=== PATIENT | male | born 1935 | race Caucasian/White ===

== ENCOUNTER 2023-03-25 21:51 | Inpatient (IN) | payer OTHER ==
[~2023-03-25] VITALS: Ht 167.6 cm; Wt 63.9 kg
[2023-03-25] MEDS ORDERED: TAMS.4ER PO (22:16)
[2023-03-25] MEDS ORDERED: AMLO10 PO (22:16)
[2023-03-25] MEDS ORDERED: ZOCOR20 MG PO (22:16)
[2023-03-25] MEDS ORDERED: METO100ER PO (22:17)
[2023-03-25] MEDS ORDERED: ELIQUIS5 M2 PO (22:17)
[2023-03-25] MEDS ORDERED: METF500 PO (22:17)
[2023-03-25] MEDS ORDERED: Aspir 8181 MG PO (22:19)
[2023-03-25] MEDS ORDERED: Lisinopril2.5 MG PO (22:19)
[2023-03-25] MEDS ORDERED: INSULANI SC (22:20)
[2023-03-25 22:36] LABS: BASOPHILS ABSOLUTE AUTO 0.08 K/mm3 (0.00-0.23); BASOPHILS PERCENT AUTO 1 % (0-2); EOSINOPHILS ABSOLUTE AUTO 0.33 K/mm3 (0.00-0.68); EOSINOPHILS PERCENT AUTO 4 % (0-6); Hematocrit 34.7 % (37.0-53.0); Hemoglobin 11.9 g/dL (13.5-17.5); IMMATURE GRAN ABSOLUTE AUTO 0.02 K/mm3 (0.00-0.10); IMMATURE GRAN PERCENT AUTO 0 % (0-1); LYMPHOCYTES ABSOLUTE AUTO 1.27 K/mm3 (0.84-5.20); LYMPHOCYTES PERCENT AUTO 15 % (21-46); MONOCYTES ABSOLUTE AUTO 0.82 K/mm3 (0.16-1.47); MONOCYTES PERCENT AUTO 10 % (4-13); Mean Corpuscular HGB 31.7 pg (26.0-34.0); Mean Corpuscular HGB Conc 34.3 g/dL (31.5-36.5); Mean Corpuscular Volume 93 fL (80-100); Mean Platelet Volume 9.8 fL (9.1-12.4); NEUTROPHILS ABSOLUTE AUTO 6.05 K/mm3 (1.96-9.15); NEUTROPHILS PERCENT AUTO 71 % (41-73); Platelet Count 244 K/mm3 (150-400); RDW Standard Deviation 44.3 fL (35.1-46.3); Red Blood Cell Count 3.75 M/mm3 (4.30-5.90); White Blood Cell Count 8.57 K/mm3 (4.00-11.30)
[2023-03-25 22:55] LABS: Albumin, Blood 3.2 g/dL (3.4-5.0); Albumin/Globulin Ratio 0.8 (0.8-1.8); Bilirubin, Total 0.4 mg/dL (0.1-1.0); Calcium, Blood 9.2 mg/dL (8.5-10.1); Creatinine, Blood 0.85 mg/dL (0.60-1.20); Globulin, Blood 4.2 g/dL (2.2-4.0); Magnesium, Blood 2.2 mg/dL (1.6-2.4); Potassium, Blood 4.1 mmol/L (3.5-5.5); Total Protein, Blood 7.4 g/dL (6.4-8.2)
[2023-03-26 00:15] LABS: International Normalized Ratio 1.07; Prothrombin Time Results 11.2 Sec (9.7-11.5)
[2023-03-26 03:05] LABS: Anti-Xa UFH, PHA Monitoring 0.28 IU/mL
[2023-03-26 03:14] VITALS: BP 136/75
[2023-03-26] MEDS ORDERED: MULTI-VITAMIN1 EAC2 PO (04:40)
[2023-03-26] MEDS ORDERED: MIRALAX17 GM PO (04:40)
[2023-03-26 06:03] LABS: CHOL/HDL RATIO 3.4; Cholesterol 114 mg/dL (50-200); HDL Cholesterol 34 mg/dL (>39); LDL/HDL RATIO 1.7; Low Density Lipoprotein Chol 58 mg/dL (0-110); Triglycerides 109 mg/dL (30-160); Very Low Density Lipoprot Chol 21 mg/dL (6-32)
--- NOTE | 2023-03-26 06:04 | NUR ---
SHIFT SUMMARY PT ADMITTED AT 305- REPORT FROM ED RN PRIOR TO ARRIVAL, PT STOOD AND WALKED FROM [facility], ASSESSMENT DONE, PT UNABLE TO ANSWER QUESTIONS APPROPRIATE- PT SET OFF BED ALARM MULTIPLE TIMES GETTING OUT OF BED, PT USED URINAL WITHOUT PROBLEMS- BED LOW POSITION, CALL LIGHT WITHIN REACH, BED ALARM IN PLACE
[2023-03-26 07:09] VITALS: BP 145/70
--- NOTE | 2023-03-26 16:29 | NUR ---
SHIFT SUMMARY PT AWAKE AT START OF SHIFT, FREQUENTLY OOB, SETTING BED ALARM OFF. PT IS WEAK AND UNSTEADY. UP TO CHAIR SEVERAL TIMES AND BACK TO BED. PT VERY RESTLESS AND AGITATED, CONSTANTLY SETTING OFF ALARMS. SPEECH SLIGHTLY [place], [facility] [place], AND CONFUSED. DR CERNA AND THEN DR BHAGAT IN TO SEE PT. NEW ORDERS PLACED. IVF'S STARTED. SP TX IN TO SEE PT AND LATER FOR COG EVAL. MRI CANCELED, PT UNABLE TO PROVIDE INFORMATION. ECHO DONE IN . PT'S DAUGHTER TO EARLIER TODAY OFF AND ON; TALKING WITH MINE TECHNICIAN AND PALLIATIVE CARE. PT NOW COMFORT CARE. PT RESTING QUIETLY AT THIS TIME. DAUGHTER NOW GONE HOME. BED ALARM ON FOR SAFETY. CALL LT IN REACH.
--- NOTE | 2023-03-26 19:50 | NUR ---
Pt reviewed with nursing and speech, Physican called with great concern of worseing cognative ability and dementia. Assesmnt of pt he looks very frail and uncomfotable. Keeps pulling at rail to reposition. Ventiltion is poor and signs of possible air hunger he connot express. Daughter inthis evening. He slives with her and she cares for him. She recently took [place] and just had a telehealth assessment. she presnts great decline recently. Up at [employer] can't rest and more aggiated. We reviewed his diagnostics, labs, speech eval and history. pt cared for his of many years who had parkinsons. He has been a heavy smoker for many years. And would have a smoke to cope with wifes decline. After her passing he later met a woman he befirended and had some quality of life and new found love. She not to long ago from a sudden event. daughter states took a big toll. after our discussion reviewed that it might be time for hospice and to change his code status. Asked he to review with family she stated there is minimal family and they defer to her. She clearly stated the hospice care supported by the [place] would be best and she feels it aligns with his wishes. Hd nurs Pan michel RN witness conversation. updated care manger and nursing of his subtle air hunger. Order placed will monitor symptoms. Had therputic time with daughter will have chaplian see her and will update visiting vets. She is showing great cargiver stress. hope is she can visit him and be his daughter as she has expressed great love and respect for her father. Will try to provide digity and comfort to this .
--- NOTE | 2023-03-27 05:43 | NUR ---
SHIFT SUMMARY PLACED 14F MARIA AT BEGINNING OF SHIFT PER ORDER FROM DAYSHIFT. PT RESTLESS AND AGITATED TRYING TO PULL OUT MARIA AND NOT REDIRECTABLE. PRN HALDOL GIVEN WITH NO EFFECT. PT STATED YES TO PAIN BUT UNABLE TO STATE WHERE. PRN ROXANOL GIVEN. PT STILL VERY AGITATED AND PULLING MARIA AND YELLING. PRN IV ATIVAN GIVEN WITH POSITIVE EFFECT. PT SLEPT UNTIL AROUND [id number] AND STARTED THRASHING AROUND IN BED AND STARTING TO GET AGITATED AGAIN. PRN IV ATIVAN GIVEN AGAIN WITH POSITIVE EFFECT. PT CURRENTLY SLEEPING.
--- NOTE | 2023-03-27 17:59 | NUR ---
SHIFT SUMMARY: PT IS AN 87 YEAR OLD MALE HERE ON COMFORT CARE. HE HAS BEEN RESTING MOST OF THE DAY IN BED, BUT WOULD TRY TO CLIMB OUT OF BED THROUGHOUT THE DAY. HE IS RE-DIRECTABLE AND IS COOPERATIVE. HE IS ALERT AND ORIENTED TO SELF AND PLACE. HE WILL SIT ON THE SIDE OF THE BED WITH SUPERVISED/ASSISTED WITH MEALS. HE HAS NOT USED HIS CALL LIGHT. HE HAS TOLERATED COMFORT CARE MEDICATIONS WELL WITHOUT SIGNS OF OVER SEDATION OR RESPIRATORY DEPRESSION. PATIENT'S DAUGHTER AND PALLATIVE CARE ON PRESENT IN THE ROOM AT THIS TIME. PLAN OF CARE ONGOING.
--- NOTE | 2023-03-27 19:08 | NUR ---
Multiple calls form patients daughter. She is anioux about plan of care. She is planning on taking him home on hospice. She is trying to work out caregivers. She is happy to see him comfortable. he sat up and took some ensure. he awas able to tolerate going back to bed and letting us settle him. Review with her what medication were helping and what he may need going forward. will continue to support her process. Completed polst on chart.
--- NOTE | 2023-03-28 06:03 | NUR ---
Shift Summary Pt AOx1 and difficult to redirect. Pt becomes anxious and confused and tries to get out of bed to 'get out of here'. He can be redirected back to bed with some effort. I gave him PRN Ativan for anxiety, he slept well t/o most of the night. No signs of air hunger, pt states no pain and there are no signs of pain. Castano in place at patent, although pt frequently removes the stat lock. On comfort care. No aggression or combativeness tonight.
--- NOTE | 2023-03-28 16:43 | NUR ---
SHIFT SUMMARY: PT ORIENTED TO SELF. PT ANXIOUS THIS AM. GAVE 2MG ATIVAN PO WHICH APPEARED TO NOT HELP WITH AGITATION/ANXIETY. ROXANOL GIVEN PER EMAR. PT ABLE TO SLEEP FROM 1300 TO 1600 CALMLY W/O AGITATION OR ATTEMPTS OOB. MARIA IN PLACE DRAINING YELLOW URINE TO GRAVITY. COMFORT CARE MEASURES IN PLACE. COMFORT CARE ASSESSMENTS COMPLETED. BED IN LOWEST POSITION W/ALARM ON. 3 SIDERAILS UP FOR SAFETY. CALL LIGHT IN REACH. WILL CONTINUE TO MONITOR.
--- NOTE | 2023-03-28 17:50 | NUR ---
Spoke to pt's daughter by phone this evening; she states feeling anxiety surrounding taking him home. The plan is for the patient to go to [facility] for [facility] hospice, with a possibility of him returning home if she can get [facility] paid CG's in the home. At this point, there is no CG set up. Allowed pt's daughter to express her concerns, and talk through the situation. She does verbalize understanding that this current situation of the pt being at may be permanent, but is willing to take it one step at a time. Palliative care will remain available to daughter Kathi.
--- NOTE | 2023-03-29 05:54 | NUR ---
Shift Summary Pt oscillated from sleeping comfortably to suddenly trying to climb out up the bedrails out of bed. He would repeat this cycle about every 2 hours. He is redirectable back to bed with little resistance. Gave PRN PO Ativan 2mg which allowed him to rest longer, uninterrupted. Pt unsure where he is and why he is here and occasionaly asks. His speech is heavily mumbled and difficult to understand. Pt is cooperative with care and generally follows commands and takes medications, crushed in applesauce, when directed.
--- NOTE | 2023-03-29 13:34 | NUR ---
pt still aggitated assessment [facility] nursing called pharmacy for guidance will start on midlevel nicotine per pharmacy.
--- NOTE | 2023-03-29 18:10 | NUR ---
SHIFT SUMMARY THIS MORNING PT BECAME IRRITATED AND TURNING BACK AND FORTH IN THE BED. ATTEMPTED TO CLIMB OVER THE SIDES OF THE RAIL. MEDICATED FOR COMFORT PER EMAR. NO BM THIS SHIFT. BEDREST. DAUGHTER AT BEDSIDE TODAY. POOR PO INTAKE. MARIA IN PLACE. URINE IS [place] IN COLOR. BED ALARM IS ON FOR SAFETY CALL LIGHT IN REACH. PT IS UNABLE TO MAKE HIS NEEDS KNOWN. PT REPOSITIONS HIMSELF IN BED.
--- NOTE | 2023-03-29 18:36 | NUR ---
LATE ENTRY PER [facility] ONCE BEFORE INSULIN ADMINISTRATION.
--- NOTE | 2023-03-30 04:00 | NUR ---
SHIFT SUMMARY; COMFORT CARE PATIENT- PT OVERALL HAD A GOOD NIGHT. AT THE BEGINNING OF THE SHIFT THE PT WAS CALM AND SLEPT IN HIS BED FROM [id number]. AFTER 0000, THE PT BECAME INCREASINGLY AGITITATED AND WAS CONTINUALLY TRYING TO GET OUT OF BED. THE PT IS PLEASANT AND REDIRECTABLE BUT FOR SHORT PERIODS OF TIME. I GAVE THE PT PO ATIVAN AND HE FELL BACK ASLEEP AROUND 0230 AND HAS BEEN SLEEPING SINCE. THE PT HAS A MARIA IN PLACE, IT IS PATENT AND DRAINING TO GRAVITY. THE PT DID TEAR HIS STAT LOCK OFF HIS LEG. I ALSO PLACED MEPILEX ON NUMEROUS BONY PROMINENCES ON THE PTS BODY, HE HAS TOOK ABOUT 1/2 OF THOSE OFF. THE PT DENIES ANY SOB, CHEST PAIN/PRESSURE, PAIN OR N/V. CURRENTLY THE PT IS SLEEPING IN BED WITH THE BED IN THE LOWEST POSITION AND THE CALL LIGHT AT BEDSIDE. FIRE EDUCATION PROVIDED AND FIRE SAFETY ROUNDS COMPLETED.
--- NOTE | 2023-03-30 09:37 | NUR ---
PT BECAME VERY IRRITATED. ATTEMPTING TO CRAWL OUT OF BED. REDIRECTABLE. PT PULLED OF 2 MARIA STAT LOCKS AND CONTINUED TO PULL . PULLING AT MARIA CATHETER, PT KEPT REPEATING THAT HE WANTED IT OFF AND IT WAS HURTING. I REMOVED THE MARIA FOR PT COMFORT AND TREATED PER EMAR. PT IS NOW RESTING COMFORTABLY WITH EYES CLOSED.
--- NOTE | 2023-03-30 19:10 | NUR ---
SHIFT SUMMARY RESPONDS TO VERBAL STIMULI. ATE FEW BITES THROUGHOUT DAY WITH SIPS OF FLUID. MARIA CAUSED PT DISTRESS SO IT WAS REMOVED. PT APPEARS TO BE MUCH MORE CALM AND COMFORTABLE. MEDICATED PT FOR COMFORT PER EMAR. FAMILY CAME TO VISIT FOR SEVERAL HOURS TODAY. BED IS IN THE LOWEST POSITION WITH CALL LIGHT IN REACH. PT IS UNABLE TO MAKE NEEDS KNOWN. MEPILEX PADS PLACED OVER BONY PROMENINCES HOWEVER PT BECOMES IRRITATED WITH THEM AND REMOVES THEM.
--- NOTE | 2023-03-31 05:04 | NUR ---
SHIFT SUMMARY PT IS A&O TO SELF ONLY, BEDREST, INCONTINENT OF URINE ATTENDS IN PLACE, PRN COMFORT CARE MEDS GIVEN PER MAR X3 FOR PAIN AND AGITATION, PT MADE SEVERAL ATTEMPTS TO OOB UNSAFELY OVERNIGHT, BED ALARM ON, CONTINUE POC
--- NOTE | 2023-03-31 15:52 | NUR ---
Pastoral care visitation conducted. Pt was resting with daughter and granddaughter in the room providing presence. Daughter gave a depiction of the patient's recent changes and deconditioning state of being. Daughter was tearful and expresses her emotions congruently. Emotional navigation and empathic listening extended. Prayer was offered and readily accepted from the family. Pastoral support will remain available as needed prospectively.
--- NOTE | 2023-03-31 16:28 | NUR ---
UNABLE TO CLEARLY MAKE NEEDS KNOWN, IRREGULAR HEART RATE, BRADYPNEA, NO AGGITATION OR GRIMACING IN HIS FACE THROUGH OUT THE DAY, NOT IMPULSIVE TO GET OOB, BED ALARM ON, PATIENT VOIDING LARGE AMOUNTS-INCONTINENT IN ATTENDS. DAUGHTER AND GRANDAUGHTER VISITED, COMFORT CART AT BEDSIDE, PATIENT TO GO HOME WITH HOSPICE ON SATURDAY PER DAUGHTER, PATIENT REPOSITIONED SELF IN BED, PUPILS PIN POINT, COMFORT CARE, WILL RELAY TO PM RN
[2023-03-31 19:59] VITALS: BP 100/54
--- NOTE | 2023-04-01 05:55 | NUR ---
SHIFT SUMMARY PT LAYING IN BED WITH EYES CLOSED DURING BEDSIDE REPORT FROM SARAH, REPORT THAT PT HAD DECREASED URINE OUTPUT- BLADDER SCAN X1 IN SHIFT = 37ML, PT HAD SMALL INCONTINET DARK URINE OUTPUT- PT SET OFF BED ALARM COUPLE TIMES TRYING TO GET TO SIDE OF BED, 0540 PT APPEARED TO HAVE INCREASE PAIN AND RESPIRATIONS INCREASED - GAVE ROXANOL 20MG- ORAL CARE DONE T/O NIGHT- PT TOOK DRINK OF WATER - PT COUGHED FOR 2-3 MINUTES AFTER- RECOMMEND THICKENED LIQUIDS, WILL PASS ON IN REPORT - WILL ATTEMPT NEXT TIME PT DRINKS, BED LOW POSITION, CALL LIGHT WITHIN REACH- MUSIC PLAYING IN ROOM FOR COMFORT
[2023-04-01] MEDS ORDERED: ACET325 PO (12:21)
[2023-04-01] MEDS ORDERED: Ativan1 MG PO (12:22)
[2023-04-01] MEDS ORDERED: MORP20L SL (12:24)
[2023-04-01] MEDS ORDERED: Nicoderm Cq1 EAC1 TOP (12:26)
--- NOTE | 2023-04-01 13:01 | NUR ---
SHIFT SUMMARY PT DISCHARGED HOME ON HOSPICE. PT LEFT AT 1255 VIA GURNEY. PT RESPONDS TO VERBAL STIMULI BUT IS NOT ORIENTED. PT ON COMFORT CARE. ALL BLONGINGS OUT OF ROOM AND WITH PT. FAMILY CONTACTED REGARDING DISCHARGE.
== END 2023-04-01 12:59 | DRG 64 ==
LOC: ER 21:51 → MEDS 21:52
PROVIDERS: Emergency Medicine; Student in an Organized Health Care Education/Training Program; ADMIT Internal Medicine
DX: I63.532 Cerebral infarction due to unspecified occlusion or stenosis of left posterior cerebral artery (principal); G93.41 Metabolic encephalopathy; E87.1 Hypo-osmolality and hyponatremia; I48.20 Chronic atrial fibrillation, unspecified; R47.81 Slurred speech; E11.9 Type 2 diabetes mellitus without complications; Z66 Do not resuscitate; Z51.5 Encounter for palliative care; I10 Essential (primary) hypertension; E78.5 Hyperlipidemia, unspecified; N40.0 Benign prostatic hyperplasia without lower urinary tract symptoms; F17.210 Nicotine dependence, cigarettes, uncomplicated; R45.1 Restlessness and agitation; R01.1 Cardiac murmur, unspecified; R29.704 NIHSS score 4; R47.1 Dysarthria and anarthria; R47.01 Aphasia; Z79.899 Other long term (current) drug therapy; Z79.01 Long term (current) use of anticoagulants; Z79.82 Long term (current) use of aspirin; Z79.4 Long term (current) use of insulin; Z79.84 Long term (current) use of oral hypoglycemic drugs
CPT/HCPCS: 36415; 51702; 70450; 70496; 70498; 80053; 80061; 82947; 83735; 85025; 85520; 85610; 92523; 92610; 93005; 93010; 93306; 96361; 96374; 96375; 96376; 97162; 97530; 99285-25; A9270; G0378; J1630; J1815; J2060; J7030; Q9967